=== PATIENT | male | born 1945 | race Hispanic/Latino ===

== ENCOUNTER 2017-06-13 08:13 | Outpatient (CLI) | payer MEDICARE, MEDICAID | END 2017-06-13 08:14 | disposition home or self-care (01) | LOC: BICCT 08:13 | PROVIDERS: ATTEND Specialist | DX: M54.9 Dorsalgia, unspecified (principal); R07.9 Chest pain, unspecified; M47.894 Other spondylosis, thoracic region; M48.061 Spinal stenosis, lumbar region without neurogenic claudication; M43.16 Spondylolisthesis, lumbar region; M99.83 Other biomechanical lesions of lumbar region; N32.89 Other specified disorders of bladder; R09.1 Pleurisy | CPT/HCPCS: 71046; 72128; 72131; 74018 ==

== ENCOUNTER 2017-07-03 20:32 | Observation (INO) | payer MEDICARE, MEDICAID ==
[2017-07-03 20:59] LABS: #Basophils 0.1 thou/uL (0.0-0.2); #Eosinphils 0.4 thou/uL (0.0-0.7); #Monocytes 0.4 thou/uL (0.11-0.59); #Neutrophils 2.1 thou/uL (1.40-6.50); %Basophils 1.1 % (0.0-1.0); %Eosinophils 8.2 % (0.0-10.0); %Lymphocytes 39.8 % (21.0-51.0); %Monocytes 8.6 % (0.0-10.0); %Neutrophils 42.4 % (42.0-75.0); Hemoglobin 12.7 g/dL (14.0-18.0); Mean Corpuscular HGB CONC 33.2 g/dL (32.0-36.0); Mean Corpuscular Hemoglobin 29.3 pg (27.0-31.0); Mean Corpuscular Volume 88.5 fl (80.0-94.0); Mean Platelet Volume 6.9 fL (7.4-10.4); Platelet Count 244 thou/uL (130-400); RBC Distribution Width 13.1 % (11.5-14.5); Red Blood Cell (RBC) Count 4.32 mill/uL (4.70-6.10)
--- NOTE | 2017-07-03 21:12 | RAD ---
CHEST ONE VIEW 07/03/17 HISTORY: Cough. Chest pain. FINDINGS: The cardiac silhouette and pulmonary vasculature are unremarkable. Mediastinum is midline. No lobar c onsolidation or evidence of pneumothorax. Old right rib fractures are apparent. IMPRESSION: No active cardiopulmonary abnormalities are demonstrated. POS: [facility]
[2017-07-03 21:21] LABS: ALT (SGPT) 15 U/L (8-55); AST (SGOT) 20 U/L (5-34); Albumin 4.2 g/dL (3.4-4.8); Alkaline Phosphatase 214 U/L (40-150); Anion Gap 11 mmol/L (10-20); BUN (Urea Nitrogen) 15 mg/dL (8.4-25.7); Bilirubin, Total 0.4 mg/dL (0.2-1.2); Calc. Creatinine Clearance 0 mL/min (70-130); Calcium 9.5 mg/dL (7.8-10.44); Carbon Dioxide 25 mmol/L (23-31); Chloride 102 mmol/L (98-107); Estimated GFR-MDRD Greater than 90; Globulin 3.8 g/dL (2.4-3.5); Glucose 101 mg/dL (83-110); Lipase 38 U/L (8-78); Potassium 4.2 mmol/L (3.5-5.1); Sodium 134 mmol/L (136-145)
[2017-07-03 21:39] LABS: Bilirubin Negative (Negative); Blood, Urine Negative (Negative); Clarity CLEAR (Clear); Glucose, Urine (Dipstick) Negative (Negative); Leukocyte Negative (Negative); Nitrite Negative (Negative); Protein, Urine (Dipstick) Negative (Neg-Trace); Specific Gravity, Urine 1.006 (1.002-1.036); Urobilinogen 0.2 mg/dL (0.2-1.0); pH, Urine 7.5 (5.0-9.0)
--- NOTE | 2017-07-03 22:02 | ULT ---
SONOGRAM RIGHT UPPER QUADRANT 07/03/17 HISTORY: Right upper quadrant pain. FINDINGS: Gallbladder is unremarkable without stone evident. Common duct is 0.5 cm diameter. Liver is unremarka ble without focal mass or intrahepatic biliary dilatation. No free fluid. IMPRESSION: No evidence of gallstones or biliary obstruction. POS: [facility]
[2017-07-03 23:09] LABS: CKMB 2.3 ng/mL (0-6.6); Troponin I Less than 0.010 ng/mL (< 0.028)
[2017-07-04 00:43] VITALS: BMI 25.4
[2017-07-04 01:06] LABS: Troponin I 0.017 ng/mL (< 0.028)
[2017-07-04 03:31] LABS: Troponin I 0.013 ng/mL (< 0.028)
[2017-07-04] MEDS ORDERED: Prevnar 13-Val Conj/PF 0.5 ML SYRINGE IM ONE (09:00)
[2017-07-04] MEDS ORDERED: FLU VACC TS2017-18 (>65YR) 0.5 ML SYRINGE IM ONE (09:00)
--- NOTE | 2017-07-04 09:30 | HP ---
REASON FOR ADMISSION: Abdominal discomfort and sinus bradycardia. HOSPITAL COURSE: This is a pleasant 72 year female with no significant past medical history except f or hypertension and hypothyroidism who presented to the hospital after he began having abdominal disc omfort and nausea. His abdominal ultrasound was normal and all lab was unremarkable. He was found t o have sinus bradycardia and therefore felt he needed to be observed overnight. The patient denies a ny chest, arm or back pain. He also denies any PND, orthopnea or palpitations. He denies any fatigu e. Thyroid was not checked in his lab and he does not know the last time he had his thyroid checked. There is no family here for questioning and he does speak just a little bit of Sami. PAST MEDICAL HISTORY: 1. Hyperlipidemia. 2. Hypothyroidism. 3. Vitamin D deficiency. 4. Arthritis. PAST SURGICAL HISTORY: In 12/2016 the patient underwent a left knee replacement for osteoarthritis. ALLERGIES: None. MEDICATIONS: Unknown at the time of dictation. FAMILY HISTORY: Noncontributory. SOCIAL HISTORY: He does not smoke, he does not drink alcohol. REVIEW OF SYSTEMS: GENERAL: No weight gain or loss, weakness, fatigue, fever or chills. HEENT: No diplopia, amaurosis fugax. Denies sore throat or hoarseness. CARDIOVASCULAR: No chest, arm or back pain. PULMONARY: No cough or hemoptysis. GASTROINTESTINAL: See history of present illness. GENITOURINARY: No dysuria, nocturia or polyuria. ENDOCRINE: No polydipsia. MUSCULOSKELETAL: Admits to arthralgias. No lupus or myopathy. NEUROLOGIC: No history of TIA or seizure. All systems are negative. PHYSICAL EXAMINATION: GENERAL: Pleasant gentleman who appears in no acute distress. VITAL SIGNS: Blood pressure is 108/60, pulse 56, respiration rate 18, he is afebrile. NECK: Supple who no increased JVP or carotid bruit. Carotid had good upstroke with no thyromegaly. COR: Regular rate and rhythm. CHEST: Symmetrical. Clear to auscultation and percussion. ABDOMEN: Soft, nontender with normoactive bowel sounds. There is no bruit or organomegaly. EXTREMITIES: No edema or cyanosis. He had palpable pedal pulses. SKIN: There is no evidence of ulcers, lesion or rash. NEURO: He is awake, alert, and oriented to person, place, and time. LABORATORY DATA: UA was negative. His CMP shows sodium 134. Alkaline phosphate 214. His CBC showe d a white blood cell 5, H&H of 12.7 and 38.3. His EKG showed sinus bradycardia. ASSESSMENT: 1. Sinus bradycardia. 2. Hypothyroidism. 3. Hypertension. 4. Abdominal discomfort with elevated liver enzymes, now improved. 5. Arthritis. PLAN: 1. The patient will have a TSH and H. pylori checked now. 2. We will order a complete echocardiogram with [facility] to read and will follow up with CMP in the morning. 3. We will also find out home medications and resume accordingly.
[2017-07-05 05:07] LABS: ALT (SGPT) 15 U/L (8-55); AST (SGOT) 15 U/L (5-34); Albumin 3.8 g/dL (3.4-4.8); Alkaline Phosphatase 191 U/L (40-150); Anion Gap 10 mmol/L (10-20); BUN (Urea Nitrogen) 14 mg/dL (8.4-25.7); Bilirubin, Total 0.5 mg/dL (0.2-1.2); Calc. Creatinine Clearance 78 mL/min (70-130); Calcium 9.4 mg/dL (7.8-10.44); Carbon Dioxide 26 mmol/L (23-31); Chloride 106 mmol/L (98-107); Estimated GFR-MDRD Greater than 90; Globulin 3.3 g/dL (2.4-3.5); Glucose 96 mg/dL (83-110); Potassium 3.7 mmol/L (3.5-5.1); Protein, Total 7.1 g/dL (5.8-8.1); Sodium 138 mmol/L (136-145)
[2017-07-05 07:55] VITALS: BP 132/73; TEMP 97.8
--- NOTE | 2017-07-05 09:32 | DIS ---
DATE OF DISCHARGE: 07/05/2017 RACHAEL Tovar dictating for Cruz Davis M.D. FINAL DIAGNOSES: 1. Sinus bradycardia. 2. Hypertension. 3. History of hypothyroidism. COMPLICATIONS: None. PROCEDURES: None. CONSULTANTS: None. HOSPITAL COURSE: This is a pleasant gentleman, who actually presented to the hospital with some naus ea and abdominal discomfort, who was found to have sinus bradycardia. So, therefore kept in observat ion for further evaluation and treatment. He did have lab obtained, which showed a normal CBC and no rmal CMP. His alkaline phosphatase was slightly elevated at 214. His thyroid test was normal. His UA was normal. He had an echocardiogram, which showed EF to be 55%-60%. His abdominal ultrasound wa s negative. His chest x-ray was negative. The patient had an H. pylori ordered; however, the result s of this are unavailable; however, he had no abdominal discomfort. He had no nausea. He had no vom iting. He was eating okay and he was drinking okay. His heart rate remained in the 60s. Therefore, it was felt he could be followed outpatient. He would be discharged on regular diet. ACTIVITIES: As tolerated by patient. DISCHARGE MEDICATIONS: Included, 1. Amlodipine 5 mg every day. 2. Lipitor 20 mg every day. 3. Levothyroxine 25 mcg every day. FOLLOWUP: He will follow up with [facility] in 1 week or prior to that if he has any complications. Total time spent with this patient after reviewing the chart and assessing the patient and dictating the discharge summary was 30 minutes.
--- NOTE | 2017-07-05 13:26 | EKG ---
Test Reason : Blood Pressure : / mmHG Vent. Rate : 045 BPM Atrial Rate : 045 BPM P-R Int : 194 ms QRS Dur : 102 ms QT Int : 472 ms P-R-T Axes : 039 -10 013 degrees QTc Int : 408 ms Sinus bradycardia Otherwise normal ECG Confirmed by RAFFI MTZ, LYLA ([id number]), business editor ANA BLACKMON ([id number]) on 07/05/2017 1:25:58 PM Referred By: Confirmed By:LYLA NUGENT MD
== END 2017-07-05 09:35 | disposition home or self-care (01) ==
LOC: ERS 20:32 → 2SW 07-04
PROVIDERS: ADMIT Specialist; ATTEND Specialist
DX: R00.1 Bradycardia, unspecified (principal); I10 Essential (primary) hypertension; E03.9 Hypothyroidism, unspecified; R10.9 Unspecified abdominal pain; R11.0 Nausea; M19.90 Unspecified osteoarthritis, unspecified site; Z96.652 Presence of left artificial knee joint
CPT/HCPCS: 71045; 76705; 80053; 81003; 82553; 83690; 84484 ×2; 86677; 90670; 93005; 93306; 96361; 96374; 99285; G0008; G0009; G0378; Q2036; 36415; 84443; 85025; 90471; 90682; J2270

== ENCOUNTER 2017-07-18 13:04 | Outpatient (CLI) | payer MEDICARE, MEDICAID | END 2017-07-18 13:05 | disposition home or self-care (01) | LOC: BICMRI 13:04 | PROVIDERS: ATTEND Specialist | DX: M84.48XA Pathological fracture, other site, initial encounter for fracture (principal); M84.454A Pathological fracture, pelvis, initial encounter for fracture | CPT/HCPCS: 72146; 72195 ==

== ENCOUNTER 2017-11-27 08:33 | Outpatient (CLI) | payer MEDICARE, MEDICAID ==
--- NOTE | 2017-11-27 10:06 | MRI ---
MRI LUMBAR SPINE WITHOUT CONTRAST: HISTORY: Pain. Right foot drop. History of kyphoplasty. COMPARISON: FINDINGS: The conus medullaris terminates at the superior end plate of L1. There is mild prominence of the rig ht renal collecting system without overt dilatation. No retroperitoneal adenopathy. Aortic contour is nonaneurysmal. Background marrow signal is maintained without infiltrative process . Modic type II changes at L3-4 on the right. Levels are as follows: T12-L1: Normal disks. No neural foraminal or spinal canal narrowing. L1-2: Low-grade disk desiccation. No neural foraminal or spinal canal narrowing. L2-3: Mild facet arthropathy. Low-grade posterior osseous remodeling with posterior spurs, the larg est in the right subforaminal region. No significant neural foraminal or spinal canal narrowing. L3-4: Mild disk desiccation. Low-grade circumferential disk bulge. Low-grade facet arthropathy. M oderate ligamentum flavum hypertrophy. There is moderate bilateral neural foraminal narrowing. Ther e is abutment of the exiting left-sided nerve root. The spinal canal measures approximately 8 mm. L4-5: There is severe facet arthrosis and degenerative change. There is extensive ligamentum flavum hypertrophy. There is some crowding of the nerve roots. The spinal canal appears to be measured un tatyana 3 mm. There is moderate to severe left-sided and moderate right-sided neural foraminal narrowing . There is 3 mm anterolisthesis. L5-S1: Severe degenerative disk space height loss. Three millimeters of anterolisthesis. There is moderate to severe facet arthropathy. Moderate bilateral neural foraminal narrowing with abutment of the exiting nerve roots bilaterally. There is narrowing of the interspinous base between the spinous processes of L3-4 and l4-5 along with adventitial bursal formation between the L4 and L5 spinous processes. IMPRESSION: Advanced spondylosis as described above with crowding of the nerve roots at L4-5, anterolisthesis and very narrowed spinal canal. This can be the source of the patient's symptomatology. CODE T POS: [facility]
== END 2017-11-27 08:34 | disposition home or self-care (01) ==
LOC: TBSIIMAG 08:33
PROVIDERS: ATTEND Neurological Surgery
DX: M47.26 Other spondylosis with radiculopathy, lumbar region (principal); M47.27 Other spondylosis with radiculopathy, lumbosacral region; M48.061 Spinal stenosis, lumbar region without neurogenic claudication; M43.16 Spondylolisthesis, lumbar region
CPT/HCPCS: 72148

== ENCOUNTER 2017-12-02 20:38 | Emergency (ER) | payer MEDICARE, MEDICAID ==
[~2017-12-02 20:38] MED LIST: ISOVUE-370 76%-LOCM 1 ML ONE
[2017-12-02 22:04] LABS: Bilirubin Negative (Negative); Blood, Urine Negative (Negative); Clarity CLEAR (Clear); Glucose, Urine (Dipstick) Negative (Negative); Leukocyte Negative (Negative); Nitrite Negative (Negative); Protein, Urine (Dipstick) Negative (Neg-Trace); Specific Gravity, Urine 1.008 (1.002-1.036); Urobilinogen 0.2 mg/dL (0.2-1.0)
[2017-12-02 22:58] LABS: #Eosinphils 0.3 thou/uL (0.0-0.7); #Lymphocytes 1.3 thou/uL (1.20-3.40); #Monocytes 0.8 thou/uL (0.11-0.59); #Neutrophils 4.5 thou/uL (1.40-6.50); %Basophils 0.5 % (0.0-1.0); %Eosinophils 4.2 % (0.0-10.0); %Lymphocytes 18.5 % (21.0-51.0); %Monocytes 11.8 % (0.0-10.0); %Neutrophils 65.1 % (42.0-75.0); Hemoglobin 11.2 g/dL (14.0-18.0); Mean Corpuscular HGB CONC 33.1 g/dL (32.0-36.0); Mean Corpuscular Hemoglobin 30.9 pg (27.0-31.0); Mean Corpuscular Volume 93.4 fL (78.0-98.0); Mean Platelet Volume 7.1 fL (7.4-10.4); Platelet Count 231 thou/uL (130-400); RBC Distribution Width 11.5 % (11.5-14.5); Red Blood Cell (RBC) Count 3.61 mill/uL (4.70-6.10)
[2017-12-02 23:09] LABS: ALT (SGPT) 29 U/L (8-55); AST (SGOT) 23 U/L (5-34); Albumin 3.9 g/dL (3.4-4.8); Alkaline Phosphatase 152 U/L (40-150); Anion Gap 13 mmol/L (10-20); BUN (Urea Nitrogen) 15 mg/dL (8.4-25.7); Bilirubin, Total 0.6 mg/dL (0.2-1.2); Calc. Creatinine Clearance 0 mL/min (70-130); Calcium 9.1 mg/dL (7.8-10.44); Carbon Dioxide 23 mmol/L (23-31); Chloride 102 mmol/L (98-107); Estimated GFR-MDRD 83; Globulin 3.4 g/dL (2.4-3.5); Glucose 108 mg/dL (83-110); Lipase 40 U/L (8-78); Potassium 3.9 mmol/L (3.5-5.1); Protein, Total 7.3 g/dL (5.8-8.1); Sodium 134 mmol/L (136-145)
--- NOTE | 2017-12-02 23:35 | CT ---
CT ABDOMEN AND PELVIS WITH IV CONTRAST: 12/02/17 HISTORY: 72-year-old male with pain. FINDINGS: The lung bases are unremarkable. No free air or free fluid or lymphadenopathy see in the abdomen or p kevin. No calcified gallstones are seen. The liver, spleen, pancreas, adrenal glands and kidneys are normal. There is sigmoid diverticulosis. There is thickening of the wall of the sigmoid colon with ad jacent inflammatory changes. There are degenerative changes in the spine. The urinary bladder is well distended and unremarkable. There are old healed fractures of the right superior and inferior pubic rami. There are vascular calcifications without evidence of aneurysmal dilatation or the abdominal ao rta. A small fat containing right inguinal hernia is present. IMPRESSION: Sigmoid diverticulitis. POS: [facility]
[2017-12-03] MEDS ORDERED: metroNIDAZOLE 250 MG TAB ONE (00:11)
[2017-12-03] MEDS ORDERED: Ciprofloxacin 500 MG TAB ONE (00:11)
== END 2017-12-03 00:20 | disposition home or self-care (01) ==
LOC: ERS 20:38
DX: K57.92 Diverticulitis of intestine, part unspecified, without perforation or abscess without bleeding (principal); E03.9 Hypothyroidism, unspecified; I10 Essential (primary) hypertension; Z87.891 Personal history of nicotine dependence; Z79.899 Other long term (current) drug therapy
CPT/HCPCS: 74177; 80053; 81003; 83690; 85025

== ENCOUNTER 2018-01-29 08:00 | Inpatient (IN) | payer MEDICARE, MEDICAID ==
--- NOTE | 2018-02-12 11:12 | HP ---
HISTORY OF PRESENT ILLNESS: The patient is a 72-year-old male with a long history of progressive deg enerative arthritis of both knees. He underwent left total knee replacement approximately one year a go with good results. He continues to have progressive problems with the right knee despite rest, re striction of activities, anti-inflammatory medications, and lifestyle adjustments. The pain is now i nterfering with day-to-day activities. PAST MEDICAL HISTORY: Please see the old chart. The patient underwent a left total knee replacement in December of 2016. He has a history of hypertension and back pain, thyroid replacement, and high ch olesterol. He is followed by Dr. Cruz Davis. CURRENT MEDICATIONS: Include lisinopril, amlodipine, levothyroxine, atorvastatin. ALLERGIES: He has no known allergies. FAMILY HISTORY/SOCIAL HISTORY/REVIEW OF SYSTEMS: Otherwise unremarkable. PHYSICAL EXAMINATION: GENERAL: Reveals a healthy male. HEENT: Unremarkable. NECK: Supple. CHEST: Clear. HEART: Regular rate and rhythm. ABDOMEN: Soft, nontender. RECTAL/GENITAL: Deferred. EXTREMITIES: Pertinent findings related to the right knee. There is mild swelling. There is modera te varus deformity. There is tenderness and crepitus over the medial joint line. Range of motion is 10-95 degrees. There is crepitus with range of motion. There is no instability. There are palpabl e distal pulses. Neurovascular exam is intact. There is an antalgic gait. X-RAY FINDINGS: X-rays of the right knee reveal bone on bone collapse medially. There is a left tot al knee replacement in good position. IMPRESSION: 1. Degenerative arthritis, right knee. 2. Status post left total knee replacement. 3. History of hypertension. 4. History of thyroid replacement. PLAN: Right total knee replacement. The nature of the surgery, length of recovery, and potential co mplications such as infection, loss of motion, incomplete relief, delayed wound healing, neurovascula r injury, thromboembolic phenomena, possible transfusion, and need for revision have been discussed i n detail.
[2018-02-13 13:06] VITALS: BMI 26.1
[2018-02-13 13:46] LABS: Bilirubin Negative (Negative); Blood, Urine Negative (Negative); Clarity CLEAR (Clear); Glucose, Urine (Dipstick) Negative (Negative); Leukocyte Negative (Negative); Nitrite Negative (Negative); Protein, Urine (Dipstick) Negative (Neg-Trace); Specific Gravity, Urine 1.011 (1.002-1.036); Urobilinogen 0.2 mg/dL (0.2-1.0); pH, Urine 5.5 (5.0-9.0)
[2018-02-13 13:48] LABS: #Eosinphils 0.2 thou/uL (0.0-0.7); #Lymphocytes 1.3 thou/uL (1.20-3.40); #Monocytes 0.3 thou/uL (0.11-0.59); #Neutrophils 2.4 thou/uL (1.40-6.50); %Basophils 0.6 % (0.0-1.0); %Eosinophils 4.3 % (0.0-10.0); %Lymphocytes 31.4 % (21.0-51.0); %Neutrophils 55.8 % (42.0-75.0); Bacteria/HPF None Seen HPF (None Seen); Hemoglobin 12.5 g/dL (14.0-18.0); Hyaline Casts/LPF 0-3 HYALINE CAST LPF (0-3 Hyaline); Mean Corpuscular HGB CONC 32.8 g/dL (32.0-36.0); Mean Corpuscular Hemoglobin 31.4 pg (27.0-31.0); Mean Corpuscular Volume 95.8 fL (78.0-98.0); Mean Platelet Volume 7.2 fL (7.4-10.4); Pathc Cast-AUWi Flag 0.14 (0-2.49); Platelet Count 265 thou/uL (130-400); RBC Distribution Width 13.4 % (11.5-14.5); RBC/HPF 0-3 HPF (0-3); Red Blood Cell (RBC) Count 3.99 mill/uL (4.70-6.10); Squamous Epithelial None Seen HPF (0-3); WBC/HPF None Seen HPF (0-3); White Blood Cell (WBC) Count 4.2 thou/uL (4.8-10.8)
[2018-02-13 13:55] LABS: INR-International Normal Ratio 1.1; Prothrombin Time 13.8 SEC (12.0-14.7)
[2018-02-13 14:51] LABS: Anion Gap 9 mmol/L (10-20); BUN (Urea Nitrogen) 16 mg/dL (8.4-25.7); Calc. Creatinine Clearance 72 mL/min (70-130); Calcium 9.4 mg/dL (7.8-10.44); Carbon Dioxide 26 mmol/L (23-31); Chloride 105 mmol/L (98-107); Estimated GFR-MDRD 84; Glucose 116 mg/dL (83-110); Sodium 136 mmol/L (136-145)
[2018-02-16] MEDS ORDERED: Sodium Chloride 0.9% 100 ML ONE (07:39)
[2018-02-16] MEDS ORDERED: CEFAZOLIN/Water 2 GM/20 ML SYRINGE ONE (07:39)
[2018-02-16] MEDS ORDERED: Midazolam HCl 2 mg/2 ml Vial ONE (08:24)
[2018-02-16] MEDS ORDERED: Fentanyl 100 MCG/2 ML VIAL ONE ×2 (08:25→10:44)
[2018-02-16] MEDS ORDERED: HYDROcodone/Acetaminophen 5/325 mg Tablet PO PRN (09:12)
[2018-02-16] MEDS ORDERED: Zolpidem Tartrate 5 MG TAB PO PRN ×2 (09:12→12:55)
[2018-02-16] MEDS ORDERED: traMADol HCl 50 MG TAB PO PRN ×3 (09:12→12:55)
[2018-02-16] MEDS ORDERED: Promethazine HCl 25 MG/ML VIAL IM PRN ×2 (09:12→10:42)
[2018-02-16] MEDS ORDERED: Ropivacaine HCl/PF 250 ML in Premix Bag 1 BAG NERVE BLCK SCH (09:12)
[2018-02-16] MEDS ORDERED: Ondansetron HCl/PF 4 MG/2 ML Vial IVP PRN ×3 (09:12→12:55)
[2018-02-16] MEDS ORDERED: Fentanyl 100 MCG/2 ML VIAL IV PRN (09:13)
[2018-02-16] MEDS ORDERED: Bupivacaine/Epinephrine 0.25% 30 ML VIAL ONE (09:15)
[2018-02-16] MEDS ORDERED: Lidocaine 1% w/Epinephrine 1:100K 30 ML VIAL ONE (09:16)
[2018-02-16] MEDS ORDERED: Promethazine HCl 25 MG/ML VIAL SLOW IVP PRN ×2 (10:42→12:55)
[2018-02-16] MEDS ORDERED: Tranexamic Acid 1,000 MG in Sodium Chloride 0.9% 100 ML IVPB SCH ×2 (11:30→12:55)
--- NOTE | 2018-02-16 12:41 | OP ---
DATE OF PROCEDURE: 02/16/2018 SURGEON: Benny Lloyd M.D. VP PRODUCT MANAGEMENT: KEDAR Dougherty. ANESTHESIA: General plus adductor canal and sciatic nerve blocks. PREOPERATIVE DIAGNOSIS: Degenerative arthritis, right knee. POSTOPERATIVE DIAGNOSIS: Degenerative arthritis, right knee. PROCEDURES: Right total knee replacement with computer-assisted navigation with cemented Burdine Tri athlon components (#5 femoral component, #5 universal tibial baseplate with 9 mm CS plastic insert, a nd A32 all plastic patellar component). NARRATIVE REPORT: After satisfactory anesthesia was induced in supine position, sequential compressi on device was placed on the non-operative leg throughout the procedure. The right leg was then prepp ed and draped in the routine sterile fashion. The leg was elevated, extended the tourniquet in flated to 250 mmHg. A gently curved medial parapatellar incision was made, carried through the subcu taneous tissues, and bleeding points controlled with Bovie cautery. Medial parapatellar arthrotomy p erformed. Patella was dislocated laterally and portions of fat pad excised for exposure. There was marked degenerative arthritis of the knee, especially medially, with large areas of exposed bone. Me niscal remnants and osteophytes were removed. Using the appropriate guides, the Freddy pinless bebeto gation system, the distal femoral and proximal tibial articular surfaces were excised with an oscilla ting saw to accept the trial components. It was felt that a #5 femoral component, #5 tibial baseplat e with 9 mm CS plastic insert gave appropriate size, fit, stability, and correction of the preoperati ve deformity. The patellar articular surface was excised to accept an all plastic A32 patellar compo nent. There was good patellar tracking and full range of motion. The trial components removed. The knee was copiously irrigated with pulsatile lavage and bony surfaces thoroughly cleaned and dried. The permanent components were then cemented in a single stage using 1 package of cement premixed with 1 gram of tobramycin powder. Excess cement was removed. There was again good fit and stability of the components. The knee was again copiously irrigated. The medial retinaculum and quadriceps mecha nism was closed with interrupted #2 Vicryl and a running #2 Quill. Subcutaneous tissues were closed with running 0 Quill suture. The skin closed with running subcuticular 3-0 Monoderm and SurgiSeal sk in adhesive. Sterile bulky compressive dressing was applied and the tourniquet deflated after 64 min utes. The foot promptly pinked up and sequential compression device was applied onto the operated le g. He was awakened and taken to recovery room in stable condition. There were no apparent intraoper ative complications. The estimated blood loss was less than 100 mL.
[2018-02-16] MEDS ORDERED: diphenhydrAMINE 25 MG CAP PO PRN (12:55)
[2018-02-16] MEDS ORDERED: HYDROcodone/Acetaminophen 10/325 mg Tablet PO PRN ×2 (12:55)
[2018-02-16] MEDS ORDERED: Fentanyl 100 MCG/2 ML VIAL SLOW IVP PRN ×2 (12:55)
--- NOTE | 2018-02-16 13:06 | RAD ---
RIGHT KNEE 2 VIEWS: HISTORY: Total knee. COMPARISON: None. FINDINGS: Satisfactory postop appearance of right total knee arthroplasty and patellar resurfacing. Expected p ostoperative cast and edema. IMPRESSION: Satisfactory postoperative appearance. POS: [facility]
[2018-02-16] MEDS: Ketorolac Tromethamine 30 MG/ML VIAL IVP SCH ×2 (13:14→18:12)
[2018-02-16] MEDS ORDERED: Ketorolac Tromethamine 30 MG/ML VIAL IVP SCH (14:00)
[2018-02-16] MEDS: Sodium Chloride 0.9% 1,000 ML IV SCH ×2 (15:00→17:27)
[2018-02-16] MEDS ORDERED: Bupivacaine HCl 0.5%/Epinephrine 1:200,000/PF 30 ml Vial ONE (16:21)
[2018-02-16] MEDS ORDERED: Bupivacaine 0.25% HCL 30 ML VIAL ONE (16:21)
[2018-02-16] MEDS ORDERED: Ondansetron HCl/PF 4 MG/2 ML Vial ONE (17:05)
[2018-02-16] MEDS ORDERED: Lidocaine 1% PF 5 ML VIAL ONE (17:05)
[2018-02-16] MEDS ORDERED: ePHEDrine/0.9% NaCl/PF SYRINGE 50 mg/10 ml ONE (17:05)
[2018-02-16] MEDS ORDERED: PROPOFOL 200 MG/20 ML VIAL ONE (17:05)
[2018-02-16] MEDS: CEFAZOLIN/Water 2 GM/20 ML SYRINGE SLOW IVP SCH (17:21)
[2018-02-16] MEDS ORDERED: Vancomycin HCl 1 GM in Premix Bag 1 BAG IVPB SCH (18:00)
[2018-02-16] MEDS: Acetaminophen 325 MG TAB PO PRN (18:24)
[2018-02-16] MEDS: Lisinopril 20 MG TAB PO SCH (21:19)
[2018-02-16] MEDS: Atorvastatin Calcium 20 MG TAB PO SCH (21:19)
[2018-02-16] MEDS: Aspirin 81 mg Enteric Coated Tablet PO SCH (21:19)
[2018-02-17] MEDS: Ketorolac Tromethamine 30 MG/ML VIAL IVP SCH ×5 (00:41→23:17)
[2018-02-17] MEDS: CEFAZOLIN/Water 2 GM/20 ML SYRINGE SLOW IVP SCH (00:42)
[2018-02-17] MEDS: HYDROcodone/Acetaminophen 5/325 mg Tablet PO PRN (00:47)
--- NOTE | 2018-02-17 03:00 | CON ---
DATE OF CONSULTATION: 02/16/2018 DATE OF ADMISSION: 02/16/2018 DATE OF OPERATION: 02/16/2018 CHIEF COMPLAINT: Status post right total knee replacement. HISTORY OF PRESENT ILLNESS: The patient is a 72-year-old male who has had severe degenerative joint disease of his right knee for quite some time. He had his left knee replaced a year before and this had been giving him a lot of trouble. He had seen Dr. Lloyd about replacing his knee and it was done today. I have been consulted to help take care of his other medical issues. PAST MEDICAL HISTORY: Hyperlipidemia, hypothyroidism, vitamin D deficiency, and osteoarthritis. He also has hypertension, low back pain, and hypothyroidism as well as dyslipidemia. PAST SURGICAL HISTORY: The aforementioned left knee replacement a year before and recently this year , he has undergone both EGD, which was unremarkable and colonoscopy, which had some polyps. ALLERGIES: None. MEDICATIONS: Medications at the time of admission are listed on the chart. FAMILY HISTORY: Noncontributory. REVIEW OF SYSTEMS: Constitutional: The patient denies any fever, malaise. HEENT: Denies any heada ches; sore throat; drainage from his ear, nose, or throat. Chest: Denies any shortness of breath or cough. Cardiovascular: Denies chest pain or palpitations. Abdomen: Denies nausea, vomiting, or d iarrhea. Genitourinary: Denies blood in urine or stool or dysuria. Musculoskeletal: Significant f or the severe arthritis in his right knee, which is now postop replacement. Skin: Denies rashes or lesions. Endocrine: Denies any bruising, swelling, or unusual rashes. Psychiatric: Significant fo r anxiety. PHYSICAL EXAMINATION: VITAL SIGNS: At the time of admission, he is afebrile. His vital signs are stable. GENERAL: He is a well-developed, well-nourished, elderly male. Alert, responsive, and in no acute d istress. HEENT: Normocephalic, atraumatic. Pupils equal, round, and reactive to light. At 2 mm, decreased r eactivity and arcus senilis. TMs, nares, and pharynx are clear. NECK: Supple. Trachea midline. CHEST: Clear to auscultation. HEART: Regular rate and rhythm without murmur. ABDOMEN: Soft without organomegaly. GENITOURINARY: Deferred. EXTREMITIES: Without clubbing, cyanosis, or edema (00:00) but for the right lower extremity, wilmer salazar is in the knee immobilizer. He has normal range of motion. SKIN: No new rashes or lesions. NEUROLOGIC: Cranial nerves are intact. Gait and cerebellar function are untested. Sensory exam is intact. LABORATORY DATA: There is no lab work. ASSESSMENT: 1. Severe degenerative joint disease of the right knee, now status post total knee replacement. 2. Hypertension. 3. Hyperlipidemia. 4. Hypothyroidism. PLAN: We will medically manage his other issues of blood pressure. Pain control will be monitored b y Anesthesia. We will re-evaluate him serially until discharge. Time necessary to review the chart, evaluate the patient, and dictate was 35 minutes.
[2018-02-17] MEDS: Levothyroxine Sodium 25 MCG TAB PO SCH (05:55)
[2018-02-17 06:19] LABS: Hemoglobin 11.2 g/dL (14.0-18.0); Mean Corpuscular HGB CONC 33.4 g/dL (32.0-36.0); Mean Corpuscular Hemoglobin 31.6 pg (27.0-31.0); Mean Corpuscular Volume 94.8 fL (78.0-98.0); Mean Platelet Volume 7.3 fL (7.4-10.4); Platelet Count 211 thou/uL (130-400); RBC Distribution Width 13.5 % (11.5-14.5); Red Blood Cell (RBC) Count 3.53 mill/uL (4.70-6.10); White Blood Cell (WBC) Count 4.9 thou/uL (4.8-10.8)
[2018-02-17 06:45] LABS: Anion Gap 10 mmol/L (10-20); BUN (Urea Nitrogen) 15 mg/dL (8.4-25.7); Calc. Creatinine Clearance 56 mL/min (70-130); Calcium 8.5 mg/dL (7.8-10.44); Carbon Dioxide 25 mmol/L (23-31); Chloride 105 mmol/L (98-107); Estimated GFR-MDRD 62; Glucose 115 mg/dL (83-110); Sodium 136 mmol/L (136-145)
[2018-02-17] MEDS: Amlodipine 5 MG TAB PO SCH (08:50)
[2018-02-17] MEDS: Multivitamin W/ Minerals 1 TAB PO SCH (10:08)
[2018-02-17] MEDS: Lisinopril 20 MG TAB PO SCH ×2 (10:09→20:00)
[2018-02-17] MEDS: Senokot S 8.6-50 MG TAB PO SCH ×2 (10:09→20:00)
[2018-02-17] MEDS: Ferrous Gluconate 324 MG TAB PO SCH ×2 (10:10→20:00)
[2018-02-17] MEDS: Aspirin 81 mg Enteric Coated Tablet PO SCH ×2 (10:10→20:00)
[2018-02-17] MEDS: Sodium Chloride 0.9% 1,000 ML IV SCH ×2 (10:11→19:55)
[2018-02-17] MEDS: Acetaminophen 325 MG TAB PO PRN (16:41)
[2018-02-17] MEDS: Atorvastatin Calcium 20 MG TAB PO SCH (20:00)
[2018-02-18] MEDS: Sodium Chloride 0.9% 1,000 ML IV SCH ×2 (04:00→15:45)
[2018-02-18] MEDS: Ketorolac Tromethamine 30 MG/ML VIAL IVP SCH (06:34)
[2018-02-18] MEDS: Levothyroxine Sodium 25 MCG TAB PO SCH (06:34)
[2018-02-18] MEDS: HYDROcodone/Acetaminophen 5/325 mg Tablet PO PRN ×2 (07:29→13:51)
[2018-02-18] MEDS: Multivitamin W/ Minerals 1 TAB PO SCH (07:30)
[2018-02-18] MEDS: Ferrous Gluconate 324 MG TAB PO SCH (07:30)
[2018-02-18] MEDS: Aspirin 81 mg Enteric Coated Tablet PO SCH (07:31)
[2018-02-18] MEDS: Senokot S 8.6-50 MG TAB PO SCH (07:31)
[2018-02-18] MEDS: Lisinopril 20 MG TAB PO SCH (11:18)
[2018-02-18] MEDS: Amlodipine 5 MG TAB PO SCH (11:18)
[2018-02-18 11:19] VITALS: BP 153/76
[2018-02-18 11:25] VITALS: TEMP 98.3
--- NOTE | 2018-02-19 12:57 | DIS ---
DATE OF ADMISSION: 02/16/2018 DATE OF DISCHARGE: 02/18/2018 PREOPERATIVE DIAGNOSIS: Right degenerative joint disease/osteoarthritis of the knee. DISCHARGE DIAGNOSIS: Right degenerative joint disease/osteoarthritis of the knee. PROCEDURE: The patient underwent a right total knee replacement. HOSPITAL COURSE: Hospital stay was unremarkable. He worked with physical therapy, clinical massage therapist apy, and staff on the [facility] and had no postoperative complications. DISCHARGE CONDITION: Stable. DISPOSITION: Home with family. FOLLOWUP: Follow up would be in 2-4 weeks, sooner if there are problems and/or concerns. DISCHARGE MEDICATIONS: Given with usage instructions.
== END 2018-02-18 16:25 | disposition home or self-care (01) | DRG 470 ==
LOC: SJJU 02-16 06:50 → EDSTATUS 02-16 08:00 → SJJU 02-16 12:42
PROVIDERS: ADMIT Orthopaedic Surgery; ATTEND Orthopaedic Surgery
PROC: 0SRC0J9 Replacement of Right Knee Joint with Synthetic Substitute, Cemented, Open Approach (ICD-10-PCS; principal; 2018-02-16)
DX: M17.11 Unilateral primary osteoarthritis, right knee (principal); I10 Essential (primary) hypertension; E78.5 Hyperlipidemia, unspecified; E03.9 Hypothyroidism, unspecified; E55.9 Vitamin D deficiency, unspecified; Z01.818 Encounter for other preprocedural examination
CPT/HCPCS: 36415; 80048; 81001; 85025; 85027; 85610; 85730; 86850; 86900; 86901; 90471; 90662; 93005; 93010; C1713; C1776; G0008; G8978-GP-CK; G8979-GP-CI; J0670; J1885; J2001; J2250; J2405; J2704; J2795; J3010; J3370; J7050; S0020

== ENCOUNTER 2018-02-13 11:25 | Outpatient (CLI) | payer MEDICARE, MEDICAID | END 2018-02-13 11:26 | disposition home or self-care (01) | LOC: LABBT 11:25 | PROVIDERS: ATTEND Orthopaedic Surgery | DX: Z01.818 Encounter for other preprocedural examination (principal); M17.11 Unilateral primary osteoarthritis, right knee | CPT/HCPCS: 93005; 93010 ==

== ENCOUNTER 2018-04-18 21:12 | Emergency (ER) | payer MEDICARE, MEDICAID ==
[2018-04-18 21:57] LABS: #Eosinphils 0.4 thou/uL (0.0-0.7); #Lymphocytes 1.3 thou/uL (1.20-3.40); #Monocytes 0.6 thou/uL (0.11-0.59); #Neutrophils 3.6 thou/uL (1.40-6.50); %Basophils 0.2 % (0.0-1.0); %Eosinophils 7.6 % (0.0-10.0); %Lymphocytes 22.1 % (21.0-51.0); %Monocytes 9.6 % (0.0-10.0); %Neutrophils 60.5 % (42.0-75.0); Mean Corpuscular HGB CONC 34.1 g/dL (32.0-36.0); Mean Corpuscular Hemoglobin 31.4 pg (27.0-31.0); Mean Corpuscular Volume 92.2 fL (78.0-98.0); Mean Platelet Volume 6.4 fL (7.4-10.4); Platelet Count 300 thou/uL (130-400); RBC Distribution Width 11.6 % (11.5-14.5); Red Blood Cell (RBC) Count 3.83 mill/uL (4.70-6.10); White Blood Cell (WBC) Count 5.9 thou/uL (4.8-10.8)
[2018-04-18 22:21] LABS: ALT (SGPT) 14 U/L (8-55); AST (SGOT) 17 U/L (5-34); Alkaline Phosphatase 168 U/L (40-150); Anion Gap 13 mmol/L (10-20); BUN (Urea Nitrogen) 15 mg/dL (8.4-25.7); Bilirubin, Total 0.3 mg/dL (0.2-1.2); Calc. Creatinine Clearance 0 mL/min (70-130); Calcium 9.4 mg/dL (7.8-10.44); Carbon Dioxide 23 mmol/L (23-31); Chloride 98 mmol/L (98-107); Estimated GFR-MDRD 79; Globulin 3.6 g/dL (2.4-3.5); Glucose 122 mg/dL (83-110); Lipase 28 U/L (8-78); Potassium 3.8 mmol/L (3.5-5.1); Protein, Total 7.6 g/dL (5.8-8.1); Sodium 130 mmol/L (136-145)
[2018-04-18 22:36] LABS: Bilirubin Negative (Negative); Blood, Urine Negative (Negative); Clarity CLEAR (Clear); Glucose, Urine (Dipstick) Negative (Negative); Leukocyte Negative (Negative); Nitrite Negative (Negative); Protein, Urine (Dipstick) Negative (Neg-Trace); Specific Gravity, Urine 1.006 (1.002-1.036); Urobilinogen 0.2 mg/dL (0.2-1.0)
== END 2018-04-18 23:53 | disposition home or self-care (01) ==
LOC: ERS 21:12
DX: R33.9 Retention of urine, unspecified (principal); E03.9 Hypothyroidism, unspecified; I10 Essential (primary) hypertension; Z87.891 Personal history of nicotine dependence; Z79.899 Other long term (current) drug therapy
CPT/HCPCS: 51703; 80053; 81003; 83690; 85025; 87086

== ENCOUNTER 2018-04-20 20:56 | Emergency (ER) | payer MEDICARE, MEDICAID | END 2018-04-20 22:44 | disposition home or self-care (01) | LOC: ERS 20:56 | DX: R33.9 Retention of urine, unspecified (principal); N48.89 Other specified disorders of penis; E03.9 Hypothyroidism, unspecified; I10 Essential (primary) hypertension; N40.0 Benign prostatic hyperplasia without lower urinary tract symptoms; Z87.891 Personal history of nicotine dependence; Z79.899 Other long term (current) drug therapy | CPT/HCPCS: 99283 ==

== ENCOUNTER 2018-04-21 23:16 | Observation (INO) | payer MEDICARE, MEDICAID ==
[2018-04-22 00:05] LABS: #Eosinphils 0.5 thou/uL (0.0-0.7); #Lymphocytes 1.1 thou/uL (1.20-3.40); #Monocytes 0.5 thou/uL (0.11-0.59); %Basophils 0.6 % (0.0-1.0); %Eosinophils 13.1 % (0.0-10.0); %Lymphocytes 27.5 % (21.0-51.0); %Monocytes 11.1 % (0.0-10.0); %Neutrophils 47.7 % (42.0-75.0); Hemoglobin 11.7 g/dL (14.0-18.0); Mean Corpuscular HGB CONC 34.4 g/dL (32.0-36.0); Mean Corpuscular Hemoglobin 31.9 pg (27.0-31.0); Mean Corpuscular Volume 92.7 fL (78.0-98.0); Mean Platelet Volume 6.2 fL (7.4-10.4); Platelet Count 281 thou/uL (130-400); RBC Distribution Width 11.6 % (11.5-14.5); Red Blood Cell (RBC) Count 3.66 mill/uL (4.70-6.10); White Blood Cell (WBC) Count 4.1 thou/uL (4.8-10.8)
[2018-04-22 00:26] LABS: ALT (SGPT) 14 U/L (8-55); AST (SGOT) 17 U/L (5-34); Albumin 3.8 g/dL (3.4-4.8); Alkaline Phosphatase 167 U/L (40-150); Anion Gap 10 mmol/L (10-20); BUN (Urea Nitrogen) 16 mg/dL (8.4-25.7); Bilirubin, Total 0.2 mg/dL (0.2-1.2); Calc. Creatinine Clearance 0 mL/min (70-130); Calcium 9.4 mg/dL (7.8-10.44); Carbon Dioxide 26 mmol/L (23-31); Chloride 100 mmol/L (98-107); Estimated GFR-MDRD 85; Globulin 3.5 g/dL (2.4-3.5); Glucose 109 mg/dL (83-110); Potassium 4.2 mmol/L (3.5-5.1); Protein, Total 7.3 g/dL (5.8-8.1); Sodium 132 mmol/L (136-145)
[2018-04-22 01:04] LABS: Bilirubin Negative (Negative); Blood, Urine Large (Negative); Clarity CLEAR (Clear); Glucose, Urine (Dipstick) Negative (Negative); Leukocyte Small (Negative); Nitrite Negative (Negative); Protein, Urine (Dipstick) Negative (Neg-Trace); Specific Gravity, Urine 1.006 (1.002-1.036); Urobilinogen 0.2 mg/dL (0.2-1.0)
[2018-04-22 01:15] LABS: Bacteria/HPF None Seen HPF (None Seen); Hyaline Casts/LPF 0-3 HYALINE CAST LPF (0-3 Hyaline); Pathc Cast-AUWi Flag 0.29 (0-2.49); RBC/HPF GREATER THAN 50-TNTC HPF (0-3); Squamous Epithelial 0-3 HPF (0-3)
[2018-04-22] MEDS ORDERED: Ondansetron PF 4 MG/2 ML Vial IVP PRN (04:14)
[2018-04-22] MEDS ORDERED: Acetaminophen 325 MG TAB PO PRN (04:14)
[2018-04-22] MEDS ORDERED: Ondansetron ODT 4 MG TAB SL PRN (04:14)
[2018-04-22 04:35] VITALS: BMI 24.7
[2018-04-22] MEDS: Sodium Chloride 0.9% 1,000 ML IV SCH ×2 (05:45→08:11)
[2018-04-22] MEDS ORDERED: HYDROcodone/Acetaminophen 5/325 mg Tablet PO PRN (08:28)
[2018-04-22] MEDS ORDERED: Cyclobenzaprine 10 MG TAB PO PRN (08:30)
[2018-04-22] MEDS: Tamsulosin HCl 0.4 MG CAP PO SCH ×2 (10:24→20:17)
[2018-04-22] MEDS: Lisinopril 10 MG TAB PO SCH (10:24)
[2018-04-22] MEDS: Docusate 100 MG CAP PO SCH ×2 (10:24→20:17)
[2018-04-22] MEDS: Amlodipine 5 MG TAB PO SCH (10:25)
--- NOTE | 2018-04-22 10:56 | ULT ---
POS: [facility]
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
--- NOTE | 2018-04-22 19:42 | CON ---
DATE OF CONSULTATION: 04/22/2018 HISTORY OF PRESENT ILLNESS: This is a 72-year-old male from [place], he speaks only Chinese. I was able to interview him with aid of a pumping plant operator, Hedy, here in the fourth floor of [facility]. Looking through his records, he has been in [facility] 3 times in the last 3 days. He came in on the , which was yesterday, and then last night at about 3 in the morning. When he came in on the , his complaints were difficulty with urination. He had a Navarro catheter placed without difficulty and 400 mL of urine output obtained. The urinalysis from that day was normal. He came back in on the complaining that he saw some blood in his urine and he is having some discomfort. ER physicians saw him and noticed that at that point his urine was clear. They did a urinalysis that did show red cells over 50 and 4 to 6 white cells, no bacteria, but again this was with the catheter indwelling, that was the urinalysis from last night; so they actually did not do a urinalysis on him on the , but saw that his urine was grossly clear. He was just complaining some of constipation and they thought he had become constipated from over use of narcotics, so they recommended correction of the problems with constipation and he was discharged home, then he came in yesterday complaining the catheter was not draining well and apparently had to be irrigated and appears to have been draining adequately now. Of note is the fact that this patient also had a recent right total knee replacement and within the last 2 years, a left total knee replacement. It does not appear that he has been on any antibiotics. There is a urine culture setup from when he was on the , which is no growth to 36 hours. Further history, he states that he had prostate surgery done in [place] 3 years ago. He describes a procedure done to the penis to allow him to urinate better, so I imagine it was TURP or perhaps one of the minimally invasive procedures with laser, but we do not have any records of that and he has no recollection of exactly how they did it. He has no knowledge that he has ever been diagnosed with prostate cancer. He has never had kidney stones. Prior to the catheter, he has never had blood in his urine. His knowledge has not had urinary tract infections. He said after the procedure in [place] 2-3/4 years, he is urinating okay, but about 3 months ago, he started noticing that he is getting up lot at night, that he had to strain to urinate at times, that strain had a split or splay to it. He does feel like he was getting the urine out, it was not burning, he has not seen blood, he was not having urgency or incontinence, and he had no problems with abnormal frequency during the daytime. PAST MEDICAL HISTORY: His medical history, which is really taken from his ER reports, he has low thyroid, lower urinary tract symptoms. It looks like he was at least on Flomax when he came in. He has high cholesterol. He has high blood pressure. PAST SURGICAL HISTORY: His surgical history includes a prostate surgery 3 years ago and then left total knee procedure I think just short of 2 years ago and then a right total knee procedure not that long ago at all. SOCIAL HISTORY: He does have a history of smoking, but none for last 10 years. CURRENT MEDICATIONS: He is still on [place] which probably should be stopped. He takes, 1. Norvasc. 2. Lipitor. 3. Flexeril, I am assuming for back pain. 4. Colace, he has been I think from his visit on yesterday. 5. Synthroid. 6. Zestril. 7. Remeron as an antidepressant. 8. It looks like he has p.r.n. Zofran. 9. He takes Protonix. I do not know if this is something he routinely takes. 10. Flomax, which I am thinking he needs to continue to stay on. PHYSICAL EXAMINATION: Abdomen is soft and nontender. He has an incision just in the epigastric area and he may have had a stomach procedure done at some point, this is not a very large incision. He has no lower abdominal incision. His bladder is not distended. His penis is not circumcised, but there are no lesions or phimosis. Navarro catheter appears to be in good positioning, draining clear yellow urine. Testicles are descended without mass or tenderness. There is normal rectal tone. His prostate is really not very big at all. It is smooth and without nodularity. No rectal lesions. IMPRESSION: 1. Difficulty with urination that started 3 months ago. He had a Navarro catheter placed 3 days ago for 400 mL of the urine. His urine culture from that was negative. His urinalysis is clear. 2. Recent total knee replacements x2. PLAN: Plan at this time will be recollection of the urine, obtain a PSA, place him on low dose of Macrodantin daily to try to prevent colonization while knee replacements. Arrange to setup a followup visit in my office when I get back after the holidays to work him up with probably a cystometrogram and a cystoscopic exam to try to define why he is having difficulty with urination; is he obstructed or is it a bladder issue. He is not having any significant problems with hematuria currently. I think he should stay on the tamsulosin. I think he should do as much as he can to stop his narcotics. Of note is that it looks like he did have a kidney ultrasound done this morning and not sure the reasoning that the kidney ultrasound was done, but it appears there is a left renal cyst. There does not to be any evidence of hydronephrosis and did not see anything that would suggest a solid renal mass. There probably is a small left renal cyst on this ultrasound. He has had, in addition to that, a CT scan of the abdomen and pelvis done this past November. He had normal-appearing kidneys at that time. It was done with contrast. Some thickening of the wall of the sigmoid colon, unremarkable bladder. He was felt at that time to have sigmoid diverticulitis. Currently, his creatinine is normal at 0.88. He has elevated alkaline phosphatase, but we are going to check the PSA on him and his white count is normal, his hemoglobin is 11.7, and his platelet counts are normal. Job ID: [id number]
[2018-04-22] MEDS: Nitrofurantoin Macrocrystal 50 MG CAP PO SCH (20:17)
[2018-04-22] MEDS ORDERED: Mirtazapine 30 MG TAB PO SCH (21:00)
[2018-04-22] MEDS ORDERED: Atorvastatin Calcium 20 MG TAB PO SCH (21:00)
[2018-04-23] MEDS: Sodium Chloride 0.9% 1,000 ML IV SCH ×2 (05:02→17:06)
[2018-04-23] MEDS ORDERED: Levothyroxine Sodium 25 MCG TAB PO SCH (06:00)
--- NOTE | 2018-04-23 07:27 | ULT ---
RENAL ULTRASOUND: HISTORY: Urinary retention. Hematuria. COMPARISON: None. TECHNIQUE: Sagittal and transverse imaging of the kidneys is performed. FINDINGS: RIGHT KIDNEY: Normal cortical echotexture. No hydronephrosis. The right kidney measures 9.2 x 5.1 x 5.4 cm. LEFT KIDNEY: Normal cortical echotexture. There is a echoic focus in the mid pole of left ki dney, measuring 1.3 x 1.2 x 0.9 cm. There does appear to be a component of through transmission, sug gesting a cyst. Overall, the left kidney measures 5.6 x 5 x 10.3 cm. No hydronephrosis. The urinary bladder is decompressed due to Navarro catheterization. IMPRESSION: 1. Probable cyst in the left kidney. Reference made to lumbar spine MRI from 11/27/2017 demonstrates a T2 hyperintense lesion in the left kidney, compatible with a cyst. 2. Bilaterally, no hydronephrosis. POS: [facility]
[2018-04-23] MEDS: Tamsulosin HCl 0.4 MG CAP PO SCH (09:13)
[2018-04-23] MEDS: Lisinopril 10 MG TAB PO SCH (09:13)
[2018-04-23] MEDS: Docusate 100 MG CAP PO SCH (09:14)
[2018-04-23] MEDS: Nitrofurantoin Macrocrystal 50 MG CAP PO SCH (09:14)
[2018-04-23] MEDS: Amlodipine 5 MG TAB PO SCH (09:14)
[2018-04-23 16:23] VITALS: BP 133/89; TEMP 97.8
== END 2018-04-23 19:11 | disposition home or self-care (01) ==
LOC: ERS 23:16 → T4-A 04-22 02:47
PROVIDERS: ADMIT Specialist; ATTEND Specialist
DX: R33.9 Retention of urine, unspecified (principal); E78.5 Hyperlipidemia, unspecified; E03.9 Hypothyroidism, unspecified; F41.9 Anxiety disorder, unspecified; F32.9 Major depressive disorder, single episode, unspecified; K59.00 Constipation, unspecified; I10 Essential (primary) hypertension; K21.9 Gastro-esophageal reflux disease without esophagitis; M79.10 Myalgia, unspecified site; Z87.891 Personal history of nicotine dependence; Z79.899 Other long term (current) drug therapy; Z88.5 Allergy status to narcotic agent; Z98.890 Other specified postprocedural states
CPT/HCPCS: 51702; 76770; 80053; 85025; 87086; 99285; G0378 ×2; 36415; 81003; 81015

== ENCOUNTER 2018-05-22 06:15 | Outpatient (CLI) | payer MEDICARE, MEDICAID ==
[2018-05-22 16:28] LABS: Mean Corpuscular HGB CONC 33.3 g/dL (32.0-36.0); Mean Corpuscular Hemoglobin 31.2 pg (27.0-31.0); Mean Corpuscular Volume 93.5 fL (78.0-98.0); Mean Platelet Volume 6.4 fL (7.4-10.4); Platelet Count 301 thou/uL (130-400); RBC Distribution Width 11.9 % (11.5-14.5); Red Blood Cell (RBC) Count 3.84 mill/uL (4.70-6.10); White Blood Cell (WBC) Count 4.4 thou/uL (4.8-10.8)
[2018-05-22 16:44] LABS: INR-International Normal Ratio 1.1; PTT 34.2 SEC (22.9-36.1); Prothrombin Time 14.5 SEC (12.0-14.7)
[2018-05-22 16:50] LABS: Anion Gap 15 mmol/L (10-20); BUN (Urea Nitrogen) 14 mg/dL (8.4-25.7); Calc. Creatinine Clearance 0 mL/min (70-130); Calcium 9.1 mg/dL (7.8-10.44); Carbon Dioxide 20 mmol/L (23-31); Chloride 105 mmol/L (98-107); Estimated GFR-MDRD 72; Glucose 138 mg/dL (83-110); Potassium 4.6 mmol/L (3.5-5.1); Sodium 135 mmol/L (136-145)
== END 2018-05-22 06:16 | disposition home or self-care (01) ==
LOC: LABBT 06:15
PROVIDERS: ATTEND Urology
DX: Z01.812 Encounter for preprocedural laboratory examination (principal); N32.0 Bladder-neck obstruction
CPT/HCPCS: 80048; 85027; 85610; 85730

== ENCOUNTER 2018-05-27 10:52 | Day surgery (SDC) | payer MEDICARE, MEDICAID ==
[2018-05-22 16:23] VITALS: BMI 24.9
[2018-05-27] MEDS ORDERED: Cefepime 2 GM in Sodium Chloride 0.9% 100 ML IVPB SCH (11:15)
[2018-05-27] MEDS ORDERED: Vancomycin HCl 1.5 GM in Sodium Chloride 0.9% 250 ML 300 ML IVPB SCH (11:15)
[2018-05-27] MEDS ORDERED: Fentanyl 100 MCG/2 ML VIAL ONE ×2 (12:56→14:16)
[2018-05-27] MEDS ORDERED: Ondansetron PF 4 MG/2 ML Vial ONE (13:18)
[2018-05-27] MEDS ORDERED: PROPOFOL 200 MG/20 ML VIAL ONE (13:18)
[2018-05-27] MEDS ORDERED: HYDROcodone/Acetaminophen 5/325 mg Tablet ONE (15:00)
--- NOTE | 2018-05-27 20:33 | OP ---
DATE OF PROCEDURE: 05/27/2018 PREOPERATIVE DIAGNOSES: Incomplete emptying lower urinary tract symptoms and bladder neck contracture. POSTOPERATIVE DIAGNOSES: Incomplete emptying lower urinary tract symptoms and bladder neck contracture. PROCEDURE PERFORMED: Cystoscopy, release of bladder neck contracture. ANESTHESIA: General with oral obturator. ESTIMATED BLOOD LOSS: Less than 20. DRAINS PLACED: A 20-Panamanian Navarro with 30 mL in balloon and 25 mL in the balloon. FINDINGS: There is no evidence of anterior urethral stricture disease. The prostatic urethra was somewhat scarred, but for the most part open. It was tight at the bladder neck on the floor and then on the left side, there was some scar tissue. We thus released the scar tissue on the floor, resecting some of the friable tissue in this region and then took a little bit of tissue from the left wall, where it was very scarred. There was no significant bleeding at all. The specimen was sent off. There was good hemostasis. DESCRIPTION OF PROCEDURE: After obtaining written and verbal consent from the patient after receiving IV antibiotics, he was taken to the operating suite. He was placed in a supine position on the treatment table. PlexiPulses were placed on his lower extremities and turned on. He was given a general anesthetic and oral obturator intubation. He was placed in the dorsal lithotomy position, sterilely prepped and draped. Cystoscopy was performed with a 22-Panamanian sheath. This was well lubricated, passed under direct vision through the male urethra into the urinary bladder with a 30-degree lens and video camera and monitor. There was some obstructing scar tissue in the prostatic urethra as we passed the 22-Panamanian sheath through this region. The bladder was examined with both the 30 and 70 degree lens. Also, we noted there was certainly some fixation as we tried to angle the rigid scope in a downward manner to see the anterior wall and the prostate in this area of rotation was inhibited. Once the cystoscopic exam was complete and showing nothing except some catheter-related cystitis, the instruments were removed. A 24-Panamanian resectoscope sheath was passed with the visual obturator and was able to get through the prostatic urethra under direct vision. We then brought in the Castro resectoscope with the gyrus prostate loop, and a 30-degree lens, video camera and monitored and resected. The scar tissue off the floor, which was where it seemed to be most scarred in, he had some friable tissue in this region also that had inhibited us from being able to pass the urodynamic catheter. After this was completed, the bladder neck was nice and open. There was still some scar tissue noticed on the left side of the prostatic urethra, so we just took a couple of just very superficial bites through this just to release it. We then removed the chips from the specimen out and there was good hemostasis, nothing needed to be cauterized. The instruments were removed. There was actually good screen when it was removed, and Navarro catheter was then placed, 25 mL placed in 30-degree, balloon was sucked up to the leg bag. Three-way catheter was used, but the irrigation port was plugged and urine was clear. He was taken out of the dorsal lithotomy position, awakened, extubated, and taken by dejah to recovery room. Job ID: [id number]
== END 2018-05-27 17:55 | disposition home or self-care (01) ==
LOC: SDC 10:52 → EEVIPCON 17:15 → SDC 17:55
PROVIDERS: ATTEND Urology
PROC: 0TND8ZZ Release Urethra, Via Natural or Artificial Opening Endoscopic (ICD-10-PCS; principal; 2018-05-27)
DX: N32.0 Bladder-neck obstruction (principal); N30.00 Acute cystitis without hematuria; N30.20 Other chronic cystitis without hematuria; R39.14 Feeling of incomplete bladder emptying; E03.9 Hypothyroidism, unspecified; K21.9 Gastro-esophageal reflux disease without esophagitis; I10 Essential (primary) hypertension; Z79.2 Long term (current) use of antibiotics; Z79.899 Other long term (current) drug therapy; Z88.5 Allergy status to narcotic agent; Z88.8 Allergy status to other drugs, medicaments and biological substances
CPT/HCPCS: 88305; J0692; J2405; J2704; J3010; J3370; J7050

== ENCOUNTER 2019-07-15 08:51 | Outpatient (CLI) | payer MEDICARE, MEDICAID ==
--- NOTE | 2019-07-15 10:55 | RAD ---
LUMBAR SPINE RADIOGRAPHS 2 VIEWS: Date: 07/15/2019 PROVIDED CLINICAL HISTORY: Low back pain. FINDINGS: Five non-rib bearing lumbar-type vertebral bodies are present. There is Grade I anterolisthesis of L4 on L5. Lumbar alignment appears otherwise normal. Vertebral body heights appear preserved. Disc spac e narrowing and end plate degenerative changes are seen at L4-5 and L5-S1. Multilevel lower lumbar fa cet degenerative change. Pedicles appear intact. SI joints appear symmetric. IMPRESSION: Advanced multilevel lumbar disc and facet degenerative change. POS: [facility]
== END 2019-07-15 08:52 | disposition home or self-care (01) ==
LOC: BICRAD 08:51
PROVIDERS: ATTEND Specialist
DX: M47.26 Other spondylosis with radiculopathy, lumbar region (principal); M51.16 Intervertebral disc disorders with radiculopathy, lumbar region; M47.817 Spondylosis without myelopathy or radiculopathy, lumbosacral region; M51.37 Other intervertebral disc degeneration, lumbosacral region
CPT/HCPCS: 72100

== ENCOUNTER 2022-08-24 12:24 | Emergency (ER) | payer MEDICARE, MEDICAID ==
[2022-08-24 13:11] LABS: #Eosinphils 0.6 thou/uL (0.0-0.7); #Lymphocytes 2.1 thou/uL (1.20-3.40); #Monocytes 0.6 thou/uL (0.11-0.59); #Neutrophils 2.8 thou/uL (1.40-6.50); %Basophils 0.4 % (0.0-1.0); %Eosinophils 9.9 % (0.0-10.0); %Lymphocytes 34.8 % (21.0-51.0); %Monocytes 9.1 % (0.0-10.0); %Neutrophils 45.9 % (42.0-75.0); Hemoglobin 13.9 g/dL (14.0-18.0); Mean Corpuscular HGB CONC 36.3 g/dL (32.0-36.0); Mean Corpuscular Hemoglobin 34.3 pg (27.0-31.0); Mean Corpuscular Volume 94.6 fl (78.0-98.0); Mean Platelet Volume 7.2 fL (7.4-10.4); Platelet Count 207 10x3/uL (130-400); RBC Distribution Width 11.4 % (11.5-14.5); Red Blood Cell (RBC) Count 4.04 mill/uL (4.70-6.10); White Blood Cell (WBC) Count 6.1 10x3/uL (4.8-10.8)
[2022-08-24 13:22] LABS: Bilirubin Negative (Negative); Blood, Urine Negative (Negative); Clarity Clear (Clear); Glucose, Urine (Dipstick) Normal (Negative); Ketone, Urine Negative (Negative); Leukocyte Negative Leu/uL (Negative); Nitrite Negative (Negative); Protein, Urine (Dipstick) Negative (Neg-Trace); Specific Gravity, Urine 1.008 (1.002-1.036); Urobilinogen Normal mg/dL (Less than 2)
[2022-08-24 13:40] LABS: ALT (SGPT) 23 U/L (8-55); AST (SGOT) 22 U/L (5-34); Albumin 4.1 g/dL (3.4-4.8); Alkaline Phosphatase 117 U/L (40-110); Anion Gap 12 mmol/L (10-20); BUN (Urea Nitrogen) 19 mg/dL (8.4-25.7); Bilirubin, Total 0.8 mg/dL (0.2-1.2); CK (CPK) 123 U/L (30-200); Calc. Creatinine Clearance 0 mL/min (70-130); Calcium 9.1 mg/dL (7.8-10.44); Carbon Dioxide 22 mmol/L (23-31); Chloride 107 mmol/L (98-107); Estimated GFR 69; Globulin 3.2 g/dL (2.4-3.5); Glucose 140 mg/dL (83-110); Lipase 26 U/L (8-78); Potassium 3.9 mmol/L (3.5-5.1); Protein, Total 7.3 g/dL (5.8-8.1); Sodium 137 mmol/L (136-145)
[2022-08-24 14:00] LABS: SARS-CoV-2 NAA Rapid Test Not Detected (NotDetected)
== END 2022-08-24 14:09 | disposition home or self-care (01) ==
LOC: ERS 12:24
DX: R20.2 Paresthesia of skin (principal); E03.9 Hypothyroidism, unspecified; E78.00 Pure hypercholesterolemia, unspecified; I10 Essential (primary) hypertension; Z87.891 Personal history of nicotine dependence; Z79.899 Other long term (current) drug therapy; Z20.822 Contact with and (suspected) exposure to COVID-19
CPT/HCPCS: 0240U; 71045; 81003; 82550; 83605; 83690; 83880; 84484; 85379; 87040; 93005; 80053; 84443; 85025